=== PATIENT | female | born 1945 | race Caucasian/White ===

== ENCOUNTER → 2024-06-22 | Outpatient (CLI) | payer MEDICARE, SELFPAY ==
[2024-06-22 08:56] LABS: Urea Breath Test Negative (Negative)
== END | disposition home or self-care (01) ==
PROVIDERS: PCP Specialist; Referring Provider Specialist; Visit Provider Specialist
DX: Z01.89 Encounter for other specified special examinations (principal); B96.81 Helicobacter pylori [H. pylori] as the cause of diseases classified elsewhere
CPT/HCPCS: 83013; 83014

== ENCOUNTER → 2024-06-29 | Outpatient (CLI) | payer MEDICARE, SELFPAY | END | disposition home or self-care (01) | LOC: SLDO 12:45 | PROVIDERS: PCP Specialist; Referring Provider Specialist; Visit Provider Specialist | DX: B37.0 Candidal stomatitis (principal) | CPT/HCPCS: 87102 ==

== ENCOUNTER → 2024-09-13 | Outpatient (CLI) | payer MEDICARE, SELFPAY ==
--- NOTE | 2024-09-13 13:39 | XR_ITS ---
Examination: Transvaginal ultrasound of the pelvis, complete Technique: Transvaginal sonographic images pelvis performed using bowie scale imaging Exam date and time: September 13, 2024 1444 hours INDICATIONS: Post menopausal vaginal bleeding beginning one year ago. FINDINGS: Uterus 4.5 x 1.7 x 2.7 cm endometrial stripe 0.4 cm No discrete uterine mass Calcifications in the uterus Mild fluid in the endometrial canal Ovaries obscured by bowel gas IMPRESSION: No discrete uterine mass
== END | disposition home or self-care (01) ==
PROVIDERS: PCP Specialist; Referring Provider Specialist; Visit Provider Specialist
DX: N95.0 Postmenopausal bleeding (principal)
CPT/HCPCS: 76830

== ENCOUNTER → 2024-12-19 | Outpatient (CLI) | payer MEDICARE, SELFPAY ==
[2024-12-19 07:59] LABS: Collection Type, Urine Clean Catch
[2024-12-19 08:35] LABS: Basophils % (Auto) 1 % (0-2.5); Eosinophils # (Auto) 0.1 Thou/mm3 (0.0-0.5); Eosinophils % (Auto) 2 % (0-10); Hematocrit 42.9 % (36.0-46.0); Hemoglobin 14.4 g/dL (12.0-16.0); Immature Granulocytes % (Auto) 0 % (0-0); Immature Granulocytes Auto 0.02 Thou/mm3 (0.00-0.00); Lymphocytes # (Auto) 1.9 Thou/mm3 (1.0-4.8); Lymphocytes % (Auto) 37 % (10-50); Mean Corpuscular HGB Conc 33.6 g/dl (31.0-37.0); Mean Corpuscular Hemoglobin 28.9 pg (25.0-35.0); Mean Corpuscular Volume 86 fL (80-100); Monocytes # (Auto) 0.5 Thou/mm3 (0.0-0.8); Monocytes % (Auto) 9 % (0-12); Neutrophils # (Auto) 2.6 Thou/mm3 (1.8-7.7); Neutrophils % (Auto) 51 % (37-80); Nucleated Red Blood Cell % 0 /100 WBC (0); Platelet Count 232 Thou/mm3 (140-440); RDW Standard Deviation 39.8 fL (36.4-46.3); Red Blood Count 4.98 Miln/mm3 (4.00-5.20); White Blood Count 5.2 Thou/mm3 (3.6-11.0)
[2024-12-19 08:43] LABS: Alanine Aminotransferase 16 U/L (10-49); Albumin, Serum 4.3 gm/dL (3.4-4.8); Albumin/Globulin Ratio 1.9 (1.2-2.2); Alkaline Phosphatase 56 U/L (46-116); Anion Gap 9 (7-16); BUN/Creatinine Ratio 19 Ratio (12-20); Bilirubin,Total 0.4 mg/dL (0.3-1.2); Blood Urea Nitrogen 15 mg/dL (9-23); Carbon Dioxide 26.8 mMol/L (20.0-31.0); Cardiac Risk Estimate 2.7 RATIO (3.7-5.6); Chloride 103 mMol/L (98-107); Cholesterol 306 mg/dL (132-200); Creatinine (Component) 0.8 mg/dL (0.6-1.3); Globulin 2.3 gm/dL (2.3-3.5); Glucose 98 mg/dL (74-106); HDL Cholesterol 112 mg/dL (40-60); LDL Cholesterol,Calculated 179 mg/dL (0-130); Osmolality,Calculated 278 (275-295); Sodium 139 mMol/L (136-145); Total Protein 6.6 gm/dL (5.7-8.2); Triglycerides 74 mg/dL (30-150); eGFR > 60 See Note
[2024-12-19 09:00] LABS: Bilirubin,Urine Negative (Negative); Blood,Urine 1+ (Negative); Color,Urine Yellow (Lt Yel-Yel); Glucose, Urine Negative (Negative); Ketones,Urine Negative (Negative); Leukocyte Esterase,Urine Positive (Negative); Nitrite,Urine Negative (Negative); Protein,Urine Negative (Neg - Trace); RBC,Urine 9 /hpf (0-3); Squamous Epithelial Cell,Urine 1 /hpf (0-5); Urobilinogen,Urine Negative mg/dL (0.0-1.0); WBC,Urine 56 /hpf (0-5)
[2024-12-19 09:05] LABS: Clarity,Urine Hazy (Clear/Hazy); Culture Indicated,Urine Yes
== END | disposition home or self-care (01) ==
PROVIDERS: PCP Family Medicine; Referring Provider Nurse Practitioner Family; Visit Provider Nurse Practitioner Family
DX: Z00.00 Encounter for general adult medical examination without abnormal findings (principal); B96.81 Helicobacter pylori [H. pylori] as the cause of diseases classified elsewhere
CPT/HCPCS: 36415; 80053; 80061; 81001; 83013; 83014; 84443; 85025; 87077; 87086; 87186

== ENCOUNTER → 2024-12-27 | Outpatient (CLI) | payer MEDICARE, SELFPAY ==
--- NOTE | 2024-12-27 13:40 | XR_ITS ---
Examination: Bone densitometry Date and time of exam:December 27, 2024 1337 hours INDICATIONS: Menopause age 50% history osteoporosis Technique: Lumbar spine and hip total bone mineralization values of an calculated. Peak reference and age match control results have been displayed. Findings: Lumbar spine total bone mineralization is0.585 gm/cm2. This is 4.2 standard deviations below peak reference. This is 1.6 standard deviations below age-matched controls. Hip total bone mineralization is 0.635 gm/cm2 This is 2.5 standard deviations below peak reference. This is 0.5 standard deviations below age-matched controls Impression: There is osteoporosis based on lumbar spine measurements. There is osteoporosis based on hip measurements Lumbar mineralization is decreased 1.0% compared with October 10, 2021 Hip mineralization is increase 0.3% compared with October 10, 2021
== END | disposition home or self-care (01) ==
LOC: CDIM 13:15
PROVIDERS: Referring Provider Nurse Practitioner Family; Visit Provider Nurse Practitioner Family
DX: M81.0 Age-related osteoporosis without current pathological fracture (principal)
CPT/HCPCS: 77080